=== PATIENT | male | born 1980 | race Hispanic/Latino ===

== ENCOUNTER 2019-10-28 10:47 | Emergency (ER) | payer OTHER ==
[2019-10-28] MEDS ORDERED: Metoprolol Tartrate 25 MG TAB ONE (12:41)
[2019-10-28 12:49] LABS: #Lymphocytes 1.5 thou/uL (1.20-3.40); #Monocytes 0.3 thou/uL (0.11-0.59); #Neutrophils 8.1 thou/uL (1.40-6.50); %Basophils 0.4 % (0.0-1.0); %Eosinophils 0.1 % (0.0-10.0); %Lymphocytes 15.3 % (21.0-51.0); %Monocytes 3.3 % (0.0-10.0); %Neutrophils 80.9 % (42.0-75.0); Hemoglobin 14.1 g/dL (14.0-18.0); MDiff Complete? YES; Mean Corpuscular HGB CONC 34.7 g/dL (32.0-36.0); Mean Corpuscular Hemoglobin 31.5 pg (27.0-31.0); Mean Corpuscular Volume 90.9 fL (78.0-98.0); Mean Platelet Volume 12.4 fL (7.4-10.4); Platelet Count 144 thou/uL (130-400); RBC Distribution Width 11.5 % (11.5-14.5); Red Blood Cell (RBC) Count 4.48 mill/uL (4.70-6.10)
[2019-10-28 13:08] LABS: ALT (SGPT) 29 U/L (8-55); AST (SGOT) 22 U/L (5-34); Albumin 4.2 g/dL (3.5-5.0); Alkaline Phosphatase 71 U/L (40-110); Anion Gap 18 mmol/L (10-20); BUN (Urea Nitrogen) 11 mg/dL (8.9-20.6); Bilirubin, Total 0.4 mg/dL (0.2-1.2); Calc. Creatinine Clearance 0 mL/min (70-130); Calcium 8.7 mg/dL (7.8-10.44); Carbon Dioxide 17 mmol/L (22-29); Chloride 111 mmol/L (98-107); Estimated GFR-MDRD Greater than 90; Globulin 2.5 g/dL (2.4-3.5); Glucose 76 mg/dL (70-105); Protein, Total 6.7 g/dL (6.0-8.3); Sodium 142 mmol/L (136-145)
--- NOTE | 2019-10-28 13:23 | RAD ---
PORTABLE CHEST: History: Tachycardia FINDINGS: The lung regalado are clear. Heart and mediastinum appear normal. Vasculature normal. IMPRESSION: Unremarkable portable chest. POS: [facility]
[2019-10-29 14:05] LABS: SARS-CoV-2 MS2 Positive; SARS-CoV-2 N Gene Negative; SARS-CoV-2 S Gene Negative; SARS-CoV-2 orf1ab Negative
== END 2019-10-28 14:45 | disposition home or self-care (01) ==
LOC: ERS 10:47
DX: I47.1 Supraventricular tachycardia (principal); Z20.828 Contact with and (suspected) exposure to other viral communicable diseases; E78.5 Hyperlipidemia, unspecified
CPT/HCPCS: 36415; 71045; 80053; 84484; 85025; 87635; 93005; 94760; 96360; 96361; U0003